=== PATIENT | male | born 1995 | race Caucasian/White ===

== ENCOUNTER 2020-06-10 11:44 | Inpatient (IN) | payer OTHER ==
[~2020-06-10] VITALS: Ht 180.3 cm; Wt 152.6 kg
[2020-06-10 12:35] LABS: BASOPHILS % (AUTO) 0.6 % (0.0-2.0); EOSINOPHILS % (AUTO) 0.2 % (1.0-6.0); HEMATOCRIT 46.5 % (41-53); HEMOGLOBIN 15.4 g/dL (13.5-17.5); LYMPHOCYTES # (AUTO) 1.2 K/uL (1.0-4.8); LYMPHOCYTES % (AUTO) 28.9 % (22.0-44.0); MEAN CORPUSCULAR HEMOGLOBIN 29.8 pg (26.0-34.0); MEAN CORPUSCULAR HGB CONC 33.1 G/dL (31.0-37.0); MEAN CORPUSCULAR VOLUME 90 fL (80-100); MONOCYTES # (AUTO) 0.2 K/uL (0.1-1.0); MONOCYTES % (AUTO) 5.1 % (2.0-9.0); NEUTROPHILS # (AUTO) 2.8 K/uL (1.8-7.7); NEUTROPHILS % (AUTO) 65.2 % (40.0-70.0); PLATELET COUNT (AUTO) 220 K/uL (150-450); RED BLOOD CELL COUNT(AUTO) 5.16 MIL/uL (4.50-5.90); RED CELL DISTRIBUTION WIDTH 13.2 % (11.5-14.5)
[2020-06-10 12:43] LABS: ANION GAP 5 mmol/L (8-16); CALCIUM, TOTAL 9.3 mg/dL (8.8-10.5); CARBON DIOXIDE 33 mmol/L (22-29); CHLORIDE 101 mmol/L (98-107); CREATININE 1.05 mg/dL (0.60-1.30); GLOMERULAR FILTR. RATE CALC > 60 mL/min (>60); GLUCOSE,RANDOM 104 mg/dL (70-110); POTASSIUM 4.6 mmol/L (3.5-5.1); SODIUM SERUM 139 mmol/L (136-145); UREA NITROGEN, BLOOD 13 mg/dL (7-18)
[2020-06-10 12:49] LABS: ALANINE AMINOTRANSFERASE 33 U/L (12-78); ALBUMIN 4.6 g/dL (3.4-5.0); ALKALINE PHOSPHATASE 45 U/L (46-116); ASPARTATE AMINOTRANSFERASE 16 U/L (15-37); TOTAL PROTEIN, SERUM 8.1 g/dL (6.4-8.2)
[2020-06-10 14:00] VITALS: BP 138/80
[2020-06-10] MEDS ORDERED: ONDANSETRON HCL 4 MG/2 ML VIAL IVP PRN (14:00)
[2020-06-10] MEDS ORDERED: ACETAMINOPHEN 325 MG TABLET PO PRN ×2 (14:00→16:15)
[2020-06-10] MEDS ORDERED: 0.9% SODIUM CHLORIDE 10 ML SYRINGE IVP PRN (14:00)
[2020-06-10] MEDS ORDERED: LORazepam 1 MG TABLET PO ONE (14:45)
[2020-06-10 14:59] LABS: AMPHET/METH SCREEN,URINE NEGATIVE (NEGATIVE); BARBITURATE SCREEN, URINE NEGATIVE (NEGATIVE); BENZODIAZEPINES SCREEN,URINE NEGATIVE (NEGATIVE); CANNABINOID SCREEN,URINE POSITIVE (NEGATIVE); COCAINE SCREEN,URINE NEGATIVE (NEGATIVE); METHADONE SCREEN, URINE NEGATIVE (NEGATIVE); OPIATE SCREEN,URINE NEGATIVE (NEGATIVE)
[2020-06-10 15:02] LABS: PHENCYCLIDINE SCREEN,URINE NEGATIVE (NEGATIVE)
[2020-06-10] MEDS ORDERED: CloNIDine HCL 0.1 MG TABLET PO PRN ×2 (16:15→16:30)
[2020-06-10] MEDS ORDERED: PETROLATUM,WHITE 28 GM JELLY TP PRN ×2 (16:15→16:30)
[2020-06-10] MEDS ORDERED: ALBUTEROL SULFATE HFA 90 MCG/PUFF 8 GM INHALER IH PRN ×2 (16:15→16:30)
[2020-06-10] MEDS ORDERED: DOCUSATE SODIUM 100 MG CAPSULE PO PRN ×2 (16:15→16:30)
[2020-06-10] MEDS ORDERED: NICOTINE 14 MG/24 HOUR PATCH TD PRN ×2 (16:15→16:30)
[2020-06-10] MEDS ORDERED: MAG HYDROX/AL HYDROX/SIMETH ES 30 ML SUSPENSION UDCUP PO PRN ×2 (16:15→16:30)
[2020-06-10] MEDS ORDERED: ONDANSETRON HCL 4 MG TABLET PO PRN ×2 (16:15→16:30)
[2020-06-10] MEDS ORDERED: IBUPROFEN 400 MG TABLET PO PRN ×2 (16:15→16:30)
[2020-06-10] MEDS ORDERED: LOPERAMIDE HCL 2 MG CAPSULE PO PRN ×2 (16:15→16:30)
[2020-06-10] MEDS ORDERED: MAGNESIUM HYDROXIDE SUSPENSION 30 ML UDCUP PO PRN ×2 (16:15→16:30)
[2020-06-10] MEDS ORDERED: GuaiFENesin/D-METHORPHAN [SUGAR-FREE] 200-20MG/10 ML SYRUP UDCUP PO PRN ×2 (16:15→16:30)
[2020-06-10 19:00] VITALS: BP 125/65
[2020-06-11 17:21] VITALS: BP 132/73
[2020-06-11 19:58] VITALS: BP 132/81
[2020-06-12 05:04] VITALS: BP 119/72
[2020-06-12 07:52] VITALS: BP 118/67
[2020-06-12 19:50] VITALS: BP 131/74
[2020-06-12] MEDS: ACETAMINOPHEN 325 MG TABLET PO PRN (20:37)
[2020-06-13 04:35] VITALS: BP 124/59
[2020-06-13 08:00] VITALS: BP 119/66
[2020-06-13 15:48] VITALS: BP 121/63
[2020-06-13 20:10] VITALS: BP 117/61
[2020-06-14 04:45] VITALS: BP 112/62
[2020-06-14 08:23] VITALS: BP 117/75
[2020-06-14] MEDS: CITALOPRAM HYDROBROMIDE 20 MG TABLET PO SCH (08:25)
[2020-06-14] MEDS: ACETAMINOPHEN 325 MG TABLET PO PRN (09:11)
[2020-06-14 20:47] VITALS: BP 124/71
[2020-06-15 07:40] VITALS: BP 124/89
[2020-06-15] MEDS: CITALOPRAM HYDROBROMIDE 20 MG TABLET PO SCH (08:33)
[2020-06-15 19:47] VITALS: BP 159/96
[2020-06-16 04:53] VITALS: BP 126/72
[2020-06-16 07:44] VITALS: BP 117/69
[2020-06-16] MEDS: CITALOPRAM HYDROBROMIDE 20 MG TABLET PO SCH (08:20)
[2020-06-16 15:32] VITALS: BP 136/89
[2020-06-16 20:40] VITALS: BP 135/77
[2020-06-17 07:24] VITALS: BP 125/79
[2020-06-17] MEDS: ACETAMINOPHEN 325 MG TABLET PO PRN ×2 (08:08→20:01)
[2020-06-17] MEDS: CITALOPRAM HYDROBROMIDE 20 MG TABLET PO SCH (08:08)
[2020-06-17 19:10] VITALS: BP 147/88
[2020-06-18 04:00] VITALS: BP 133/72
[2020-06-18 07:47] VITALS: BP 133/84
[2020-06-18] MEDS: CITALOPRAM HYDROBROMIDE 20 MG TABLET PO SCH (07:59)
[2020-06-18] MEDS: ACETAMINOPHEN 325 MG TABLET PO PRN (15:50)
[2020-06-18 20:31] VITALS: BP 131/79
[2020-06-19 04:43] VITALS: BP 120/72
[2020-06-19 07:15] VITALS: BP 124/77
[2020-06-19] MEDS: CITALOPRAM HYDROBROMIDE 20 MG TABLET PO SCH (08:15)
[2020-06-19] MEDS: ACETAMINOPHEN 325 MG TABLET PO PRN ×2 (08:16→22:32)
[2020-06-19 16:01] VITALS: BP 136/83
[2020-06-19 19:08] VITALS: BP 124/74
[2020-06-20 05:53] VITALS: BP 128/71
[2020-06-20 07:25] VITALS: BP 114/72
[2020-06-20] MEDS: CITALOPRAM HYDROBROMIDE 20 MG TABLET PO SCH (09:06)
[2020-06-20 15:58] VITALS: BP 120/83
[2020-06-20 20:23] VITALS: BP 135/76
[2020-06-20] MEDS: ACETAMINOPHEN 325 MG TABLET PO PRN (20:46)
[2020-06-20] MEDS ORDERED: DiphenhydrAMINE HCL 25 MG CAPSULE PO PRN (23:45)
[2020-06-21 00:58] VITALS: BP 128/74
[2020-06-21 08:03] VITALS: BP 138/68
[2020-06-21] MEDS: CITALOPRAM HYDROBROMIDE 20 MG TABLET PO SCH (08:24)
[2020-06-21 12:03] VITALS: BP 122/66
[2020-06-21] MEDS ORDERED: CITA-144 PO (14:12)
[2020-06-21 15:18] VITALS: BP 125/64
== END 2020-06-21 16:40 | DRG 880 ==
LOC: EMS 11:46 → 6S 16:14 → EMS 16:24 → 6S 06-18 08:14
PROVIDERS: ADMIT Internal Medicine; ATTEND Internal Medicine
DX: R45.851 Suicidal ideations (principal); E11.9 Type 2 diabetes mellitus without complications; F41.9 Anxiety disorder, unspecified
CPT/HCPCS: G0480